=== PATIENT | male | born 1945 | race American Indian/Alaskan Native ===

== ENCOUNTER 2017-06-20 10:31 | Day surgery (SDC) | payer MEDICARE ==
--- NOTE | 2017-06-20 11:53 | Anesthesia Day of Surgery ---
Anesthesia Day of Surgery - Day of Surgery Patient Examined: Yes Patient H&P Reviewed: Yes Patient is NPO: Yes Beta Blockers: Yes
--- NOTE | 2017-06-20 11:53 | Anesthesia Consultation ---
Anesthesia Consult and Med Hx Date of service: 06/20/17 - Airway Anesthetic Teeth Evaluation: Poor ROM Head & Neck: Adequate Mental/Hyoid Distance: Adequate Mallampati Class: Class II Intubation Access Assessment: Probably Good - Pulmonary Exam CTA: Yes - Cardiac Exam Cardiac Exam: RRR - Pre-Operative Health Status ASA Pre-Surgery Classification: ASA4 Proposed Anesthetic Plan: General - Pulmonary Hx Smoking: Yes (STOPPED X 5 YRS- OCC SMOKER) Hx Asthma: Yes ( CHILD) COPD: Yes (NO MEDS) Hx Sleep Apnea: No (BESSIE PRE SCREEN HIGH RISK) - Cardiovascular System Hx Hypertension: Yes (X 50 YRS) Hx Coronary Artery Disease: Yes - Central Nervous System Hx Psychiatric Problems: No - Hematic Hx Anemia: Yes - Other Systems Hx Substance Use: Yes (HX DRUG ABUSE (COCAINE) quit 4 yrs ago)
[2017-06-20] MEDS ORDERED: PERCOCET 5/325 PO PRN (11:54)
[2017-06-20] MEDS ORDERED: MORPHINE IV PRN (11:54)
[2017-06-20] MEDS ORDERED: ANCEF/STERILE WATER 2 GM/20 ML IV NR (12:00)
[2017-06-20] MEDS ORDERED: NACL 0.9% 1000 ML 1,000 ML IV SCH (12:00)
[2017-06-20 12:03] LABS: INR 0.95 (0.87-1.13)
[2017-06-20 12:04] LABS: Partial Thromboplastin Time 28.9 Sec. (24.2-36.6)
[2017-06-20] MEDS ORDERED: SUBLIMAZE ONE (12:08)
[2017-06-20] MEDS ORDERED: XYLOCAINE MPF 2% ONE (12:08)
[2017-06-20] MEDS ORDERED: DIPRIVAN 10 MG/ML IV ONE (12:09)
[2017-06-20] MEDS ORDERED: GELFOAM TP ONE (12:11)
[2017-06-20] MEDS ORDERED: MARCAINE 0.25% INFILTRATI ONE ×2 (12:11→13:09)
[2017-06-20] MEDS ORDERED: HEPARIN 10,000 UNITS/10 ML ONE (12:11)
[2017-06-20] MEDS ORDERED: XYLOCAINE 1% 20 mL ONE (12:11)
[2017-06-20] MEDS ORDERED: NACL 0.9% 250ML 250 ML ONE (12:11)
[2017-06-20 12:22] LABS: Albumin 3.3 g/dL (3.9-5); Albumin/Globulin Ratio 0.6 %; Alkaline Phosphatase 83 units/L (35-129); Blood Urea Nitrogen 15 mg/dL (9-20); Calcium 9.2 mg/dL (8.4-10.2); Carbon Dioxide 23 mmol/L (22-30); Chloride 102.1 mmol/L (98-107); Glucose 97 mg/dL (75-100); Sodium 136 mmol/L (137-145)
[2017-06-20] MEDS ORDERED: ROBINUL ONE (12:30)
[2017-06-20 12:36] LABS: Anion Gap 16 mmol/L
[2017-06-20 12:37] LABS: Alanine Aminotransferase 47 units/L (7-56); Potassium 4.9 mmol/L (3.6-5.0)
[2017-06-20] MEDS ORDERED: NACL 0.9% IR ONE (13:09)
[2017-06-20] MEDS ORDERED: ePHEDrine SULFATE ONE (13:10)
[2017-06-20] MEDS ORDERED: XYLOCAINE 1% 20 mL INFILTRATI ONE (13:10)
[2017-06-20] MEDS ORDERED: HEPARIN 10,000 UNITS/10 ML 1,000 UNIT in NACL 0.9% 250ML 250 ML IR ONE (13:11)
[2017-06-20] MEDS ORDERED: ZOFRAN ONE (13:41)
[2017-06-20 14:59] VITALS: BP 146/74
--- NOTE | 2017-06-20 15:52 | Fluoroscopy Report ---
Operative chest: Port placement. The right chest and mediastinum are included on the images. There is a port introduced into the subclavian vein. Its tip appears to overlie the right atrium. No pneumothorax or other finding.
--- NOTE | 2017-06-20 23:08 | Discharge Summary ---
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 HOSPITAL COURSE: This man had the above and he is being handled by Dr. REYES___ who asked me to see him for consultation of insertion of subcutaneous port. This was done under general anesthesia. We had good backflow of venous blood via the port percutaneously. The patient was discharged home after being fully awake from the recovery room. To see early next week as per his advice and to call me if has any problem otherwise. He may take a shower after removing the bandage in about 3-4 days. DIET: Ad itzel. JOB# [id number] ERASMO/RAVINDER TUCKER
--- NOTE | 2017-06-20 23:12 | Operative Report ---
PREOPERATIVE DIAGNOSIS: Lung cancer with metastasis to the liver. POSTOPERATIVE DIAGNOSIS: Lung cancer with metastasis to the liver. PROCEDURE: Insertion of subcutaneous port under fluoroscopy. ANESTHESIA: General. BLOOD LOSS: Minimal. DESCRIPTION OF PROCEDURE: With the patient in supine position, cleansed, prepped and draped in usual fashion. I inserted a needle toward the direction of right subclavian vein where we had good backflow of venous blood. At that point, the guidewire was inserted with the use of the fluoroscopy. It went in nicely. Then, an incision was performed just at the base where a pocket was created to accommodate the system. The system was then assembled together in usual fashion and then tacking it to the pectoralis fascia with use of 3-0 Vicryl and then with the use of the C-arm and the guidewire, I was able to introduce the dilator in usual fashion removing the guidewire, leaving the sheath in through which I was able to thread the tubing in the usual fashion to enter all the way in. Then, the sheath was pulled apart having good backflow of venous blood via the port. Then, the wound was closed in layers with 3-0 Vicryl for the subcutaneous tissue and 4-0 for the skin and the bandage. The patient was then transferred to the recovery room in good condition. JOB# [id number] ERASMO/RAVINDER
== END 2017-06-20 15:23 | disposition home or self-care (01) ==
LOC: OR 10:31
PROVIDERS: ATTEND Surgery
DX: C34.90 Malignant neoplasm of unspecified part of unspecified bronchus or lung (principal); C78.7 Secondary malignant neoplasm of liver and intrahepatic bile duct; I10 Essential (primary) hypertension; I25.10 Atherosclerotic heart disease of native coronary artery without angina pectoris; E11.9 Type 2 diabetes mellitus without complications; F17.200 Nicotine dependence, unspecified, uncomplicated; M17.12 Unilateral primary osteoarthritis, left knee; I48.91 Unspecified atrial fibrillation; D64.9 Anemia, unspecified; J44.9 Chronic obstructive pulmonary disease, unspecified; F14.21 Cocaine dependence, in remission; Z95.5 Presence of coronary angioplasty implant and graft; Z98.890 Other specified postprocedural states; Z86.19 Personal history of other infectious and parasitic diseases; Z79.899 Other long term (current) drug therapy
CPT/HCPCS: 36415; 36561; 77001; 80053; 82962; 85610; 85730; C1788; J0690; J1644; J2405; J2704; J3010; J7030; J7050; A4649

== ENCOUNTER 2017-10-17 13:41 | Inpatient (IN) | payer MEDICARE ==
--- NOTE | 2017-10-17 15:33 | Emergency Department Report ---
Chief Complaint: Urogenital-Female Stated Complaint: GENERAL ILLNESS Time Seen by Provider: 10/17/17 15:33 - HPI History of Present Illness: Patient reports that he has a history of liver cancer and is now complaining of generalized weakness and feels ill. He said he is out of his pain medication and Axid for pain meds to be given. Patient said his abdominal pain is 10 out of 10. Is also on his history that he has liver and lung cancer . Patient said he usually takes morphine 15 mg tablets but he is out of it. Patient sees Dr. watkins is his oncologist. He said he gets chemotherapy every day and his last chemotherapy was today. Denies any vomiting or diarrhea. Denies any urinary burning frequency or urgency. - ROS Review of Systems: All systems are negative unless stated in HPI above - Exam Vital Signs: Vital Signs 10/17/17 14:13 Temperature 98.1 F Pulse Rate 97 H Respiratory 18 Rate Blood Pressure 131/69 O2 Sat by Pulse 98 Oximetry Physical Exam: Gen.: This is a 72-year-old male that is in no acute distress but he does look ill. Abdomen: Distended, tender to palpate in all quadrants more to right upper quadrant. Abdomen is distended. Bowel sounds audible. MSE screening note: Focused history and physical exam performed. Due to findings the following was ordered: ED Medical Decision Making - Medical Decision Making MDM: Patient screened by provider in triage area. Appropriate protocol initiated and patient to be seen in main ED by ED Disposition for MSE Condition: Stable Referrals: PRIMARY CARE, [Primary Care Provider] - 3-5 Days
[2017-10-17 16:15] LABS: Basophils % (Auto) 0.1 % (0.0-1.8); Hematocrit 39.3 % (35.5-45.6); Hemoglobin 12.1 gm/dl (11.8-15.2); Mean Corpuscular HGB Conc 31 % (32-34); Mean Corpuscular Volume 79 fl (84-94); Platelet Count 279 K/mm3 (140-440); Red Blood Count 4.94 M/mm3 (3.65-5.03); White Blood Count 10.9 K/mm3 (4.5-11.0)
[2017-10-17 16:19] LABS: Alanine Aminotransferase 24 units/L (7-56); Albumin 2.8 g/dL (3.9-5); Albumin/Globulin Ratio 0.4 %; Alkaline Phosphatase 75 units/L (35-129); Anion Gap 21 mmol/L; BUN/Creatinine Ratio 24; Blood Urea Nitrogen 19 mg/dL (9-20); Calcium 8.8 mg/dL (8.4-10.2); Carbon Dioxide 20 mmol/L (22-30); Chloride 96.6 mmol/L (98-107); Glucose 180 mg/dL (75-100); Lipase 26 units/L (13-60); Sodium 134 mmol/L (137-145); Total Protein 9.9 g/dL (6.3-8.2)
[2017-10-17 16:21] LABS: Mean Corpuscular Hemoglobin 25 pg (28-32); Red Cell Distribution Width 20.6 % (13.2-15.2)
[2017-10-17 16:25] LABS: INR 1.26 (0.87-1.13)
[2017-10-17 16:26] LABS: Partial Thromboplastin Time 49.1 Sec. (24.2-36.6)
[2017-10-17] MEDS ORDERED: PERCOCET 5/325 PO ONE (18:18)
[2017-10-17] MEDS ORDERED: MORPHINE IV ONE (21:20)
[2017-10-17] MEDS ORDERED: ZOFRAN IV ONE (21:20)
--- NOTE | 2017-10-17 23:15 | Cat Scan Report ---
FINAL REPORT PROCEDURE: CT ABDOMEN PELVIS W CON TECHNIQUE: Computerized axial tomography of the abdomen and pelvis was performed after the IV injection of iodinated nonionic contrast. HISTORY: ABD PAIN, H/O LIVER CANCER,ASCITES COMPARISON: No prior studies are available for comparison. FINDINGS: Mild hypoventilatory changes are seen at the lung bases. Spleen is top normal limits in size. There appears to be a heterogeneous mass in the left hepatic lobe. It is highly suspicious for primary liver cancer. It is difficult to measure but measures approximately 7.5 x 6.0 cm. It has associated biliary ductal dilation. There is partially obstructive thrombosis of the portal vein. Intrahepatic biliary ductal dilation is seen, also. Moderate ascites is seen in the right upper quadrant the abdomen. Cholelithiasis is seen without suggestion of cholecystitis. No extrahepatic biliary ductal dilation is seen. Pancreas is partially fatty replaced. Mildly enlarged retroperitoneal and periportal lymph nodes are seen, measuring up to 2.2 x 1.1 cm. Adrenal glands and abdominal aorta are normal in size. 3.1 cm cyst is seen in the superior pole of the left kidney and there is a 1.5 cm cyst in the lower pole of the right kidney. Bladder appears normal. Small left inguinal hernia is seen containing fat. No free pelvic fluid is seen. Colon is mostly decompressed with questionable diffuse wall thickening, as can be seen with colitis. Increased fluid and air are seen in the ilium and there may be wall thickening in the jejunum. Findings could be due to jejunitis or enteritis. Changes of gastritis are not excluded in the region of the antrum. IMPRESSION: Liver malignancy is suspected with associated partially occlusive portal vein thrombosis. Possible changes of jejunitis or enteritis are seen. There may be changes of gastritis in the antrum of the stomach. Colon is diffusely nondistended with questionable wall thickening. Consideration should be given to colitis, also. Cholelithiasis is seen without suggestion of cholecystitis.
--- NOTE | 2017-10-18 00:04 | Emergency Department Report ---
ED Abdominal Pain HPI - General Chief Complaint: Urogenital-Female Stated Complaint: GENERAL ILLNESS Time Seen by Provider: 10/17/17 15:33 Source: patient, EMS Mode of arrival: Wheelchair Limitations: Physical Limitation - History of Present Illness MD Complaint: abdominal pain -: Sudden (YESTERDAY AND TODAY), days(s) (2) Location: diffuse Migration to: no migration Severity scale (0 -10): 8 Quality: cramping, aching Consistency: intermittent Improves With: nothing Worsens With: nothing Context: other (LIVER CANCER) Associated Symptoms: denies other symptoms Treatments Prior to Arrival: prescription analgesics - Related Data Home Medications Medication Instructions Recorded Confirmed Last Taken Lisinopril/Hydrochlorothiazide 1 tab PO QDAY 07/12/16 06/17/17 06/20/17 07:30 [Zestoretic 20-25 mg] Loratadine 10 mg PO BID 07/12/16 06/20/17 06/19/17 Metoprolol [Lopressor TAB] 50 mg PO BID 07/12/16 06/17/17 06/20/17 07:30 Nitroglycerin [Nitrostat] 0.4 mg SL Q5M PRN 07/12/16 06/20/17 1 Day Ago ~07/11/16 Ondansetron [Zofran TAB] 8 mg PO Q8HR PRN 07/12/16 06/17/17 06/20/17 07:30 Morphine [Morphine TAB] 15 mg PO Q4HR 06/20/17 06/20/17 06/20/17 07:30 Previous Rx's Medication Instructions Recorded Last Taken Type Omeprazole 20 mg PO DAILY #30 capsule. 07/19/16 06/20/17 07:30 Rx Allergies Allergy/AdvReac Type Severity Reaction Status Date / Time No Known Allergies Allergy Verified 07/12/16 15:52 ED Review of Systems ROS: Stated complaint: GENERAL ILLNESS Other details as noted in HPI Constitutional: denies: chills, fever Eyes: denies: eye pain, eye discharge, vision change ENT: denies: ear pain, throat pain Respiratory: denies: cough, shortness of breath, wheezing Cardiovascular: denies: chest pain, palpitations Endocrine: no symptoms reported Gastrointestinal: denies: abdominal pain, nausea, diarrhea Genitourinary: other (URINARY RETENTION). denies: urgency, dysuria Musculoskeletal: denies: back pain, joint swelling, arthralgia Skin: denies: rash, lesions Neurological: denies: headache, weakness, paresthesias Psychiatric: denies: anxiety, depression Hematological/Lymphatic: denies: easy bleeding, easy bruising ED Past Medical Hx - Past Medical History Previous Medical History?: Yes Hx Hypertension: Yes (X 50 YRS) Hx Diabetes: Yes (NO MEDS) Hx GERD: Yes Hx of Cancer: Yes (liver, lung) Hx Arthritis: Yes Hx Asthma: Yes ( CHILD) Hx COPD: Yes (NO MEDS) Hx Tuberculosis: Yes (POSITIVE TEST 30YRS AGO,NO TX,) Hx HIV: No Additional medical history: CAD - Surgical History Past Surgical History?: Yes Hx Coronary Stent: Yes (X 3) Hx Appendectomy: Yes - Social History Smoking Status: Former Smoker Substance Use Type: Prescribed - Medications Home Medications: Home Medications Medication Instructions Recorded Confirmed Last Taken Type Lisinopril/Hydrochlorothiazide 1 tab PO QDAY 07/12/16 06/17/17 06/20/17 07:30 History [Zestoretic 20-25 mg] Loratadine 10 mg PO BID 07/12/16 06/20/17 06/19/17 History Metoprolol [Lopressor TAB] 50 mg PO BID 07/12/16 06/17/17 06/20/17 07:30 History Nitroglycerin [Nitrostat] 0.4 mg SL Q5M PRN 07/12/16 06/20/17 1 Day Ago History ~07/11/16 Ondansetron [Zofran TAB] 8 mg PO Q8HR PRN 07/12/16 06/17/17 06/20/17 07:30 History Omeprazole 20 mg PO DAILY #30 capsule. 07/19/16 06/20/17 06/20/17 07:30 Rx Morphine [Morphine TAB] 15 mg PO Q4HR 06/20/17 06/20/17 06/20/17 07:30 History ED Physical Exam - General Limitations: Language Barrier (PT'S LITHUANIAN IS DIFFICULT TO UNDERSTAND), Physical Limitation General appearance: alert, in no apparent distress - Head Head exam: Present: atraumatic, normocephalic - Eye Eye exam: Present: normal appearance, EOMI, scleral icterus - ENT ENT exam: Present: mucous membranes moist - Neck Neck exam: Present: normal inspection, full ROM - Respiratory Respiratory exam: Present: normal lung sounds bilaterally. Absent: respiratory distress - Cardiovascular Cardiovascular Exam: Present: regular rate, normal rhythm. Absent: systolic murmur, diastolic murmur, rubs, gallop - GI/Abdominal GI/Abdominal exam: Present: soft, tenderness, guarding, normal bowel sounds. Absent: rebound, rigid - Rectal Rectal exam: Present: deferred - Extremities Exam Extremities exam: Present: normal inspection, full ROM - Back Exam Back exam: Present: normal inspection, full ROM - Neurological Exam Neurological exam: Present: alert, oriented X3 - Psychiatric Psychiatric exam: Present: normal affect, normal mood - Skin Skin exam: Present: warm, dry, intact, normal color. Absent: rash ED Course Vital Signs 10/17/17 10/17/17 10/17/17 14:13 18:20 19:24 Temperature 98.1 F 98.1 F Pulse Rate 97 H 108 H Respiratory 18 18 18 Rate Blood Pressure 131/69 118/88 Blood Pressure [Left] O2 Sat by Pulse 98 99 Oximetry 10/17/17 10/17/17 20:31 21:54 Temperature 98.1 F Pulse Rate 84 Respiratory 16 16 Rate Blood Pressure Blood Pressure 141/86 [Left] O2 Sat by Pulse 97 Oximetry ED Medical Decision Making - Lab Data Result diagrams: 10/17/17 15:42 10/17/17 15:48 - Radiology Data Radiology results: report reviewed (CT ABD/PELVIS WITH CONTRAST:LIVER MALIGNANCY WITH PARTIAL OCCLUSIVE PORTAL VEIN THROMBOSIS,, POSSIBLE CHNAGES OF JEJUNITIS OR ENTERITIS,GASTRITIS IN ANTRUM OF STOMACH,POSSIBLE COLITIS, CHOLELITHIASIS WITHOUT CHOLECYSTITIS) Critical care attestation.: If time is entered above; I have spent that time in minutes in the direct care of this critically ill patient, excluding procedure time. 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 Abdominal pain Qualifiers: Abdominal location: unspecified location Qualified Code(s): R10.9 - Unspecified abdominal pain Lung cancer Qualifiers: Laterality: unspecified laterality Lung location: unspecified part of lung Qualified Code(s): C34.90 - Malignant neoplasm of unspecified part of unspecified bronchus or lung Disposition: OP ADMIT IP TO THIS HOSP Is pt being admited?: Yes Does the pt Need Aspirin: No Condition: Stable Referrals: PRIMARY CARE, [Primary Care Provider] - 3-5 Days Time of Disposition: 00:17 (CASE REVIEWED WITH DR BORRERO AND SHE WISHED PT TO HAVE FULL LOVENOX DOSE SUBQ AND WILL ADMIT HIM TO HER SERVICE)
[2017-10-18] MEDS ORDERED: MORPHINE IV ONE (01:37)
[2017-10-18] MEDS ORDERED: MORPHINE ONE (01:38)
[2017-10-18 02:44] LABS: Bilirubin,Urine NEG (Negative); Blood,Urine NEG (Negative); Ketones,Urine NEG (Negative); Leukocyte Esterase,Urine NEG (Negative); Mucus,Urine 2+ /HPF; Nitrite,Urine NEG (Negative); Protein,Urine <15 mg/dL mg/dL (Negative)
[2017-10-18] MEDS ORDERED: NITROSTAT SL PRN (04:26)
[2017-10-18] MEDS ORDERED: DULCOLAX PR PRN (04:29)
[2017-10-18] MEDS ORDERED: MILK OF MAGNESIA PO PRN (04:29)
[2017-10-18] MEDS ORDERED: TYLENOL PO PRN (04:29)
--- NOTE | 2017-10-18 04:34 | History and Physical Report ---
History of Present Illness Date of admission: 10/17/17 23:55 Chief complaint: abdominal pain History of present illness: 72-year-old male with past medical history of atrial fibrillation, he used be on Coumadin, but was stopped by his PCP. His Oncologist is Dr REYES, and he is on regorafinib (oral chemo for his HCC). Also has a history of hepatocellular carcinoma. It is not clear why his anticoagulation was stopped. Patient himself does not quite remember. He did state that he did have periods of anemia and low platelet counts. He presented abdominal pain, pain is mostly in the right upper quadrant, as 7 out of 10, sharp, nonradiating. Exacerbated by movements. Past History Past Medical History: hypertension, other (hepatocellular carcinoma- inoperable has been on chemo, atrial fibrillation,) Past Surgical History: No surgical history Social history: smoking (previous smoker) Family history: hypertension Medications and Allergies Allergies Allergy/AdvReac Type Severity Reaction Status Date / Time No Known Allergies Allergy Verified 07/12/16 15:52 Home Medications Medication Instructions Recorded Confirmed Last Taken Type Lisinopril/Hydrochlorothiazide 1 tab PO QDAY 07/12/16 06/17/17 06/20/17 07:30 History [Zestoretic 20-25 mg] Loratadine 10 mg PO BID 07/12/16 06/20/17 06/19/17 History Metoprolol [Lopressor TAB] 50 mg PO BID 07/12/16 06/17/17 06/20/17 07:30 History Nitroglycerin [Nitrostat] 0.4 mg SL Q5M PRN 07/12/16 06/20/17 1 Day Ago History ~07/11/16 Ondansetron [Zofran TAB] 8 mg PO Q8HR PRN 07/12/16 06/17/17 06/20/17 07:30 History Omeprazole 20 mg PO DAILY #30 capsule. 07/19/16 06/20/17 06/20/17 07:30 Rx Morphine [Morphine TAB] 15 mg PO Q4HR 06/20/17 06/20/17 06/20/17 07:30 History Active Meds: Active Medications Acetaminophen (Tylenol) 650 mg PO Q4H PRN PRN Reason: Pain MILD(1-3)/Fever >100.5/BOSCH Bisacodyl (Dulcolax) 10 mg IN QDAY PRN PRN Reason: Constipation unrelieved by MOM Enoxaparin Sodium (Lovenox) 90 mg SUB-Q Q12HR [facility] Magnesium Hydroxide (Milk Of Magnesia) 30 ml PO Q4H PRN PRN Reason: Constipation Metoprolol Tartrate (Lopressor) 50 mg PO BID [facility] Morphine Sulfate (Morphine) 15 mg PO Q4H PRN PRN Reason: Pain , Severe (7-10) Morphine Sulfate (Morphine) 4 mg IV Q4H PRN PRN Reason: Pain , Severe (7-10) Nitroglycerin (Nitrostat) 0.4 mg SL Q5M PRN PRN Reason: Chest Pain Ondansetron HCl (Zofran) 4 mg IV Q8H PRN PRN Reason: N/V unrelieved by Reglan Pantoprazole Sodium (Protonix) 20 mg PO DAILY [facility] Review of Systems Constitutional: weight loss, fatigue Gastrointestinal: abdominal pain, no nausea, no vomiting, no diarrhea Exam - Constitutional Vitals: Temp Pulse Resp BP Pulse Ox 98.1 F 85 15 135/82 98 10/17/17 20:31 10/18/17 03:16 10/18/17 03:16 10/18/17 03:16 10/18/17 03:16 General appearance: Present: no acute distress, well-nourished - EENT Eyes: Present: PERRL ENT: hearing intact, clear oral mucosa - Neck Neck: Present: supple, normal ROM - Respiratory Respiratory effort: normal Respiratory: bilateral: CTA - Cardiovascular Heart Sounds: Present: S1 & S2. Absent: rub, click - Extremities Extremities: pulses symmetrical, No edema Peripheral Pulses: within normal limits - Abdominal General gastrointestinal: Present: soft, non-tender, distended, normal bowel sounds, hepatomegaly Male genitourinary: Present: normal - Integumentary Integumentary: Present: clear, warm, dry - Musculoskeletal Musculoskeletal: gait normal, strength equal bilaterally - Psychiatric Psychiatric: appropriate mood/affect, intact judgment & insight - Neurologic Neurologic: CNII-XII intact, moves all extremities Results - Labs CBC & Chem 7: 10/17/17 15:42 10/17/17 15:48 Labs: Laboratory Last Values WBC 10.9 K/mm3 (4.5-11.0) 10/17/17 15:42 RBC 4.94 M/mm3 (3.65-5.03) 10/17/17 15:42 Hgb 12.1 gm/dl (11.8-15.2) 10/17/17 15:42 Hct 39.3 % (35.5-45.6) 10/17/17 15:42 MCV 79 fl (84-94) L 10/17/17 15:42 MCH 25 pg (28-32) L 10/17/17 15:42 MCHC 31 % (32-34) L 10/17/17 15:42 RDW 20.6 % (13.2-15.2) H 10/17/17 15:42 Plt Count 279 K/mm3 (140-440) 10/17/17 15:42 Lymph % (Auto) 8.5 % (13.4-35.0) L 10/17/17 15:42 [place] % (Auto) 3.0 % (0.0-7.3) 10/17/17 15:42 Eos % (Auto) 0.0 % (0.0-4.3) 10/17/17 15:42 Baso % (Auto) 0.1 % (0.0-1.8) 10/17/17 15:42 Lymph # 0.9 K/mm3 (1.2-5.4) L 10/17/17 15:42 [place] # 0.3 K/mm3 (0.0-0.8) 10/17/17 15:42 Eos # 0.0 K/mm3 (0.0-0.4) 10/17/17 15:42 Baso # 0.0 K/mm3 (0.0-0.1) 10/17/17 15:42 Seg Neutrophils % 88.4 % (40.0-70.0) H 10/17/17 15:42 Seg Neutrophils # 9.6 K/mm3 (1.8-7.7) H 10/17/17 15:42 PT 16.4 Sec. (12.2-14.9) H 10/17/17 15:48 INR 1.26 (0.87-1.13) H 10/17/17 15:48 APTT 49.1 Sec. (24.2-36.6) H 10/17/17 15:48 Sodium 134 mmol/L (137-145) L 10/17/17 15:48 Potassium 4.0 mmol/L (3.6-5.0) 10/17/17 15:48 Chloride 96.6 mmol/L (98-107) L 10/17/17 15:48 Carbon Dioxide 20 mmol/L (22-30) L 10/17/17 15:48 Anion Gap 21 mmol/L 10/17/17 15:48 BUN 19 mg/dL (9-20) 10/17/17 15:48 Creatinine 0.8 mg/dL (0.8-1.5) 10/17/17 15:48 Estimated GFR > 60 ml/min 10/17/17 15:48 BUN/Creatinine Ratio 24 % 10/17/17 15:48 Glucose 180 mg/dL (75-100) H 10/17/17 15:48 Calcium 8.8 mg/dL (8.4-10.2) 10/17/17 15:48 Total Bilirubin 2.80 mg/dL (0.1-1.2) H 10/17/17 15:48 AST 38 units/L (5-40) 10/17/17 15:48 ALT 24 units/L (7-56) 10/17/17 15:48 Alkaline Phosphatase 75 units/L (35-129) 10/17/17 15:48 Total Protein 9.9 g/dL (6.3-8.2) H 10/17/17 15:48 Albumin 2.8 g/dL (3.9-5) L 10/17/17 15:48 Albumin/Globulin Ratio 0.4 % 10/17/17 15:48 Lipase 26 units/L (13-60) 10/17/17 15:48 Urine Color Mariah (Yellow) 10/17/17 23:03 Urine Turbidity Clear (Clear) 10/17/17 23:03 Urine pH 5.0 (5.0-7.0) 10/17/17 23:03 Ur Specific [place] 1.045 (1.003-1.030) H 10/17/17 23:03 Urine Protein <15 mg/dl mg/dL (Negative) 10/17/17 23:03 Urine Glucose (UA) Neg mg/dL (Negative) 10/17/17 23:03 Urine Ketones Neg mg/dL (Negative) 10/17/17 23:03 Urine Blood Neg (Negative) 10/17/17 23:03 Urine Nitrite Neg (Negative) 10/17/17 23:03 Urine Bilirubin Neg (Negative) 10/17/17 23:03 Urine Urobilinogen 4.0 mg/dL (<2.0) 10/17/17 23:03 Ur Leukocyte Esterase Neg (Negative) 10/17/17 23:03 Urine WBC (Auto) 3.0 /HPF (0.0-6.0) 10/17/17 23:03 Urine RBC (Auto) 3.0 /HPF (0.0-6.0) 10/17/17 23:03 U Epithel Cells (Auto) 1.0 /HPF (0-13.0) 10/17/17 23:03 Hyaline Casts 18 /LPF 10/17/17 23:03 Urine Mucus 2+ /HPF 10/17/17 23:03 - Imaging and Cardiology CT scan - abdomen: image reviewed (liver mass, portal vein thrombosis) Assessment and Plan Assessment and plan: 72M with pmh of liver ca with lung mets, afib who used to be on warfarin, but it was dc for unclear reasons, now pw abdominal pain and found to have portal vein thrombosis Hepatocellular ca -outpatient care upon dc Portal vein thrombosis -start him on lovenox full dose -hematology consult Afib with hypercoaguable state -continue rate control meds -lovenox for anticoagulation HTN resume home meds dvt ppx fully anticoagulated
[2017-10-18] MEDS: MORPHINE IV PRN (08:11)
[2017-10-18] MEDS: LOPRESSOR PO SCH ×2 (09:43→22:43)
[2017-10-18] MEDS: LOVENOX SUB-Q SCH ×2 (09:45→22:43)
[2017-10-19] MEDS: MORPHINE IV PRN ×3 (06:56→18:50)
--- NOTE | 2017-10-19 08:46 | Consultation ---
History of Present Illness - Reason for Consult Consult date: 10/19/17 Portal vein thrombosis/HCC Requesting physician: AMILCAR GARRIDO - History of Present Illness Thank you for this consult, patient seen/examined. record reviewed, case discussed, and will be d/w DR ELIZABETH. He is known to have hx of HCC, and on active tx with regorafinib oral.He presented with abdominal discomfort, CT showed retoperitoneal LNs, and large liver lesion.He was already on anticoagulation for A fib, which was stopped for ?reason.His coags at this time are off slightly.Will ask DR Elizabeth to see him later today. Past History Past Medical History: atrial fib, hypertension, other (hepatocellular carcinoma - inoperable has been on chemo, atrial fibrillation,) Past Surgical History: No surgical history Social history: smoking (previous smoker) Family history: hypertension Medications and Allergies Allergies Allergy/AdvReac Type Severity Reaction Status Date / Time No Known Allergies Allergy Verified 07/12/16 15:52 Home Medications Medication Instructions Recorded Confirmed Last Taken Type Nitroglycerin [Nitrostat] 0.4 mg SL Q5M PRN 07/12/16 10/18/17 1 Day Ago History ~07/11/16 Ondansetron [Zofran TAB] 8 mg PO Q8HR PRN 07/12/16 10/18/17 06/20/17 07:30 History Omeprazole 20 mg PO DAILY #30 capsule. 07/19/16 10/18/17 06/20/17 07:30 Rx Aspirin [Adult Low Dose Aspirin EC] 81 mg PO QDAY 10/18/17 10/18/17 Unknown History Carvedilol [Coreg] 12.5 mg PO BID 10/18/17 10/18/17 Unknown History Furosemide [Lasix] 20 mg PO QDAY 10/18/17 10/18/17 Unknown History Meclizine [Antivert] 25 mg PO BID 10/18/17 10/18/17 Unknown History Morphine Sulfate [Morphine Sulfate 15 mg PO Q4-6H PRN 10/18/17 10/18/17 Unknown History IR] Regorafenib [Stivarga] 80 mg PO QAM 10/18/17 10/18/17 Unknown History Spironolactone [Aldactone] 50 mg PO BID 10/18/17 10/18/17 Unknown History amLODIPine [Norvasc] 10 mg PO DAILY 10/18/17 10/18/17 Unknown History Active Meds: Active Medications Acetaminophen (Tylenol) 650 mg PO Q4H PRN PRN Reason: Pain MILD(1-3)/Fever >100.5/BOSCH Bisacodyl (Dulcolax) 10 mg DC QDAY PRN PRN Reason: Constipation unrelieved by MOM Enoxaparin Sodium (Lovenox) 90 mg SUB-Q Q12HR [facility] Last Admin: 10/18/17 22:43 Dose: 90 mg Magnesium Hydroxide (Milk Of Magnesia) 30 ml PO Q4H PRN PRN Reason: Constipation Metoprolol Tartrate (Lopressor) 50 mg PO BID [facility] Last Admin: 10/18/17 22:43 Dose: 50 mg Morphine Sulfate (Morphine) 15 mg PO Q4H PRN PRN Reason: Pain , Severe (7-10) Morphine Sulfate (Morphine) 4 mg IV Q4H PRN PRN Reason: Pain , Severe (7-10) Last Admin: 10/19/17 06:56 Dose: 4 mg Nitroglycerin (Nitrostat) 0.4 mg SL Q5M PRN PRN Reason: Chest Pain Ondansetron HCl (Zofran) 4 mg IV Q8H PRN PRN Reason: N/V unrelieved by Reglan Pantoprazole Sodium (Protonix) 20 mg PO DAILY [facility] Exam - Constitutional Vitals: Temp Pulse Resp BP Pulse Ox 97.8 F 59 L 20 120/70 100 10/19/17 07:24 10/19/17 07:24 10/19/17 08:05 10/19/17 07:24 10/19/17 07:24 General appearance: Present: mild distress, well-nourished - EENT Eyes: Present: PERRL ENT: hearing intact, clear oral mucosa - Neck Neck: Present: supple, normal ROM - Respiratory Respiratory effort: normal Respiratory: bilateral: CTA - Cardiovascular Heart Sounds: Present: S1 & S2. Absent: rub, click - Extremities Extremities: pulses symmetrical, No edema Peripheral Pulses: within normal limits - Abdominal General gastrointestinal: Present: soft, non-tender, non-distended, normal bowel sounds Male genitourinary: Present: deferred - Rectal Rectal Exam: deferred - Integumentary Integumentary: Present: clear, warm, dry - Musculoskeletal Musculoskeletal: gait normal, strength equal bilaterally - Psychiatric Psychiatric: appropriate mood/affect, intact judgment & insight - Neurologic Neurologic: CNII-XII intact, moves all extremities Results - Labs CBC & Chem 7: 10/17/17 15:42 10/17/17 15:48 Assessment and Plan - Patient Problems (1) Abdominal pain Current Visit: Yes Status: Acute Qualifiers: Abdominal location: unspecified location Qualified Code(s): R10.9 - Unspecified abdominal pain Plan to address problem: Pain control (2) Portal vein thrombosis secondary to HCC invasion Current Visit: Yes Status: Acute Plan to address problem: Will d/w Dr ELIZABETH regarding anticoagulation. (3) Atrial fibrillation Current Visit: No Status: Acute Plan to address problem: same as above (4) Hepatocellular carcinoma Current Visit: No Status: Acute Plan to address problem: suppose to already be on tx. by DR ELIZABETH.
[2017-10-19] MEDS: PROTONIX PO SCH (10:31)
[2017-10-19] MEDS: LOVENOX SUB-Q SCH ×2 (10:31→23:55)
[2017-10-19] MEDS: LOPRESSOR PO SCH ×2 (10:32→23:56)
--- NOTE | 2017-10-19 10:58 | Query- Nutrition ---
Nery Nathan___Neftaliuigbjonah Date:__10/19/2017 Treasury Director/CDS:___Marisel Phone#:___[phone] Exercise your independent professional judgment when responding to query. Questions asked do not imply a particular answer is desired or expected. We greatly appreciate your clarification on this issue. Clinical Documentation States: 72 Year old male was admitted on 10/17/2017 for abdominal pain. Clinical Findings Show: BMI: 28.4 Albumin: 2.8 Please select the most appropriate option 3 [] Mild Malnutrition [x] Mild - Moderate Malnutrition [] Moderate - Severe Malnutrition [] Severe Malnutrition Serum Albumin 2.8 to 3.4 g/dl or Pre-albumin 5 to 17 mg/dl1,2 Inadequate nutritional intake1,2,3,4 NPO > 5 days Weight loss: 5% in 1 month or 7.5% in 3 months or 10% in 6 months1, 3,4 BMI 16 to 18.4 or Weight <90% of ideal body weight1,2,3,4 Serum Albumin < 2.8 g/ dl1,2 Lymphocytes < 1500/ L2 Inadequate nutritional intake3, high stress e.g. major trauma, sepsis,pancreatitis, martin etc. Decubitus ulcers1,2, , skin breakdown2, easy hair pluckability2 Weight <80% standard for height2 Triceps skin fold <3 mm2 Mid-arm muscle circumference <15 cm2 Creatinine-height index <60% standard2 [ ] Cachexia [ ] Emaciated w/Malnutrition [ ] Other: [ ] Unable to determine [ ] Comment/Explanation: Present on Admission: [ x] Yes (Y) [ ] Clinically undeterminable (W) [ ] No (N) Please also document response in your Progress Notes and/or Discharge Summary and indicate if the condition was present on admission. MTDD
--- NOTE | 2017-10-19 15:38 | Progress Note ---
Assessment and Plan Assessment and Plan Assessment and plan: 72M with pmh of liver ca with lung mets, afib who used to be on warfarin, but it was dc for unclear reasons, now pw abdominal pain and found to have portal vein thrombosis Hepatocellular ca -outpatient care upon dc Portal vein thrombosis -start him on lovenox full dose -hematology consult Afib with hypercoaguable state -continue rate control meds -lovenox for anticoagulation HTN resume home meds dvt ppx fully anticoagulated Subjective Date of service: 10/19/17 Principal diagnosis: DVT Interval history: Doing well Objective - Constitutional Vitals: Vital Signs - 12hr 10/19/17 10/19/17 10/19/17 07:24 07:26 08:04 Temperature 97.8 F Pulse Rate 59 L Respiratory 18 20 Rate Respiratory 20 Rate [Chest] Blood Pressure 120/70 O2 Sat by Pulse 100 Oximetry 10/19/17 10/19/17 10/19/17 08:05 10:32 11:02 Temperature Pulse Rate 68 Respiratory 20 16 16 Rate Respiratory Rate [Chest] Blood Pressure 129/73 O2 Sat by Pulse Oximetry 10/19/17 10/19/17 15:19 15:21 Temperature 98 F Pulse Rate 66 Respiratory 16 Rate Respiratory Rate [Chest] Blood Pressure 116/65 O2 Sat by Pulse 99 Oximetry General appearance: Present: no acute distress, well-nourished - EENT Eyes: PERRL, EOM intact ENT: hearing intact, clear oral mucosa Ears: bilateral: normal - Neck Neck: supple, normal ROM - Respiratory Respiratory effort: normal Respiratory: bilateral: CTA - Breasts Breasts: normal - Cardiovascular Rhythm: regular Heart Sounds: Present: S1 & S2. Absent: gallop, rub Extremities: pulses intact, No edema, normal color, Full ROM - Gastrointestinal General gastrointestinal: Present: soft, non-tender, non-distended, normal bowel sounds - Genitourinary Male genitourinary: normal - Integumentary Integumentary: clear, warm, dry - Musculoskeletal Musculoskeletal: 1, strength equal bilaterally - Neurologic Neurologic: moves all extremities - Psychiatric Psychiatric: memory intact, appropriate mood/affect, intact judgment & insight - Labs CBC & Chem 7: 10/17/17 15:42 10/17/17 15:48
[2017-10-20] MEDS: MORPHINE IV PRN ×3 (03:55→19:56)
[2017-10-20] MEDS: ZOFRAN IV PRN (04:03)
[2017-10-20] MEDS: PROTONIX PO SCH ×2 (10:00→10:37)
[2017-10-20] MEDS: LOPRESSOR PO SCH ×2 (10:37→22:05)
[2017-10-20] MEDS: LOVENOX SUB-Q SCH ×2 (10:38→22:05)
--- NOTE | 2017-10-20 16:03 | Progress Note ---
Assessment and Plan Assessment and plan: --Portal vein thrombosis; on full dose anticoagulation with Lovenox, Hematology following --History of A. fib; rate controlled, Continue beta blockers, not on anticoagulation at home, continue Lovenox --History of hepatocellular carcinoma; follows with oncologist , Check with oncology recommendations --Hypertension; well controlled, continue current antihypertensives and when necessary medications --DVT prophylaxis; full dose Lovenox --Full code Plan of care discussed with patient and his nurse Closely monitor the patient and adjust management as needed DC planning, possible discharge in 1-2 days if stable History Interval history: Seen and examined medical records reviewed No overnight events reported by the nursing staff Patient feels better on full dose anticoagulation for portal vein thrombosis Hematology oncology is following He denies nausea vomiting, denies chest pain shortness of breath Hospitalist Physical - Constitutional Vitals: Temp Pulse Resp BP Pulse Ox 98.7 F 68 20 106/50 99 10/20/17 08:10 10/20/17 08:10 10/20/17 08:10 10/20/17 08:10 10/20/17 08:10 General appearance: Present: no acute distress, well-nourished - EENT Eyes: Present: PERRL, EOM intact - Neck Neck: Present: supple, normal ROM - Respiratory Respiratory effort: normal Respiratory: bilateral: diminished, negative: rales, rhonchi, wheezing - Cardiovascular Rhythm: regular Heart Sounds: Present: S1 & S2 - Extremities Extremities: no ischemia, No edema Peripheral Pulses: within normal limits - Abdominal General gastrointestinal: soft, non-tender, non-distended, normal bowel sounds - Integumentary Integumentary: Present: clear, warm - Psychiatric Psychiatric: appropriate mood/affect, cooperative - Neurologic Neurologic: CNII-XII intact, moves all extremities Results - Labs CBC & Chem 7: 10/17/17 15:42 10/17/17 15:48 Labs: Laboratory Last Values WBC 10.9 K/mm3 (4.5-11.0) 10/17/17 15:42 RBC 4.94 M/mm3 (3.65-5.03) 10/17/17 15:42 Hgb 12.1 gm/dl (11.8-15.2) 10/17/17 15:42 Hct 39.3 % (35.5-45.6) 10/17/17 15:42 MCV 79 fl (84-94) L 10/17/17 15:42 MCH 25 pg (28-32) L 10/17/17 15:42 MCHC 31 % (32-34) L 10/17/17 15:42 RDW 20.6 % (13.2-15.2) H 10/17/17 15:42 Plt Count 279 K/mm3 (140-440) 10/17/17 15:42 Lymph % (Auto) 8.5 % (13.4-35.0) L 10/17/17 15:42 [place] % (Auto) 3.0 % (0.0-7.3) 10/17/17 15:42 Eos % (Auto) 0.0 % (0.0-4.3) 10/17/17 15:42 Baso % (Auto) 0.1 % (0.0-1.8) 10/17/17 15:42 Lymph # 0.9 K/mm3 (1.2-5.4) L 10/17/17 15:42 [place] # 0.3 K/mm3 (0.0-0.8) 10/17/17 15:42 Eos # 0.0 K/mm3 (0.0-0.4) 10/17/17 15:42 Baso # 0.0 K/mm3 (0.0-0.1) 10/17/17 15:42 Seg Neutrophils % 88.4 % (40.0-70.0) H 10/17/17 15:42 Seg Neutrophils # 9.6 K/mm3 (1.8-7.7) H 10/17/17 15:42 PT 16.4 Sec. (12.2-14.9) H 10/17/17 15:48 INR 1.26 (0.87-1.13) H 10/17/17 15:48 APTT 49.1 Sec. (24.2-36.6) H 10/17/17 15:48 Sodium 134 mmol/L (137-145) L 10/17/17 15:48 Potassium 4.0 mmol/L (3.6-5.0) 10/17/17 15:48 Chloride 96.6 mmol/L (98-107) L 10/17/17 15:48 Carbon Dioxide 20 mmol/L (22-30) L 10/17/17 15:48 Anion Gap 21 mmol/L 10/17/17 15:48 BUN 19 mg/dL (9-20) 10/17/17 15:48 Creatinine 0.8 mg/dL (0.8-1.5) 10/17/17 15:48 Estimated GFR > 60 ml/min 10/17/17 15:48 BUN/Creatinine Ratio 24 % 10/17/17 15:48 Glucose 180 mg/dL (75-100) H 10/17/17 15:48 Calcium 8.8 mg/dL (8.4-10.2) 10/17/17 15:48 Total Bilirubin 2.80 mg/dL (0.1-1.2) H 10/17/17 15:48 AST 38 units/L (5-40) 10/17/17 15:48 ALT 24 units/L (7-56) 10/17/17 15:48 Alkaline Phosphatase 75 units/L (35-129) 10/17/17 15:48 Total Protein 9.9 g/dL (6.3-8.2) H 10/17/17 15:48 Albumin 2.8 g/dL (3.9-5) L 10/17/17 15:48 Albumin/Globulin Ratio 0.4 % 10/17/17 15:48 Lipase 26 units/L (13-60) 10/17/17 15:48 Urine Color [place]iah (Yellow) 10/17/17 23:03 Urine Turbidity Clear (Clear) 10/17/17 23:03 Urine pH 5.0 (5.0-7.0) 10/17/17 23:03 Ur Specific [place] 1.045 (1.003-1.030) H 10/17/17 23:03 Urine Protein <15 mg/dl mg/dL (Negative) 10/17/17 23:03 Urine Glucose (UA) Neg mg/dL (Negative) 10/17/17 23:03 Urine Ketones Neg mg/dL (Negative) 10/17/17 23:03 Urine Blood Neg (Negative) 10/17/17 23:03 Urine Nitrite Neg (Negative) 10/17/17 23:03 Urine Bilirubin Neg (Negative) 10/17/17 23:03 Urine Urobilinogen 4.0 mg/dL (<2.0) 10/17/17 23:03 Ur Leukocyte Esterase Neg (Negative) 10/17/17 23:03 Urine WBC (Auto) 3.0 /HPF (0.0-6.0) 10/17/17 23:03 Urine RBC (Auto) 3.0 /HPF (0.0-6.0) 10/17/17 23:03 U Epithel Cells (Auto) 1.0 /HPF (0-13.0) 10/17/17 23:03 Hyaline Casts 18 /LPF 10/17/17 23:03 Urine Mucus 2+ /HPF 10/17/17 23:03
[2017-10-20] MEDS: MORPHINE PO PRN (22:05)
[2017-10-21] MEDS: MORPHINE IV PRN ×4 (06:40→20:15)
[2017-10-21] MEDS: LOPRESSOR PO SCH ×2 (09:45→21:05)
[2017-10-21] MEDS: PROTONIX PO SCH (09:46)
[2017-10-21] MEDS: LOVENOX SUB-Q SCH ×2 (09:46→21:05)
--- NOTE | 2017-10-21 10:14 | Progress Note ---
Assessment and Plan Assessment and plan: 72-year-old -[place] male patient with significant past medical history of hepatocellular carcinoma, inoperable, on chemotherapy, follows with oncologist Dr. REYES, admitted with portal vein thrombosis, on full dose Lovenox Pending oncology evaluation --Portal vein thrombosis; continue anticoagulation with Lovenox, possible discharge on Coumadin Pending evaluation by title coordinator Dr. REYES --History of A. fib; rate controlled, Continue beta blockers, not on anticoagulation at home, continue Lovenox --History of hepatocellular carcinoma; inoperable, follows with oncologist , Check with oncology recommendations --Hypertension; well controlled, continue current antihypertensives and when necessary medications --DVT prophylaxis; full dose Lovenox --Full code Plan of care discussed with patient and his nurse DC planning, possible discharge in 1-2 days if stable History Interval history: Patient seen and examined Medical records reviewed Complaints of abdominal pain Denies nausea vomiting Hospitalist Physical - Constitutional Vitals: Temp Pulse Resp BP Pulse Ox 99.1 F 75 18 118/73 97 10/21/17 07:53 10/21/17 07:53 10/21/17 07:53 10/21/17 07:53 10/21/17 07:53 General appearance: Present: no acute distress, well-nourished - EENT Eyes: Present: PERRL, EOM intact - Neck Neck: Present: supple, normal ROM - Respiratory Respiratory effort: normal Respiratory: bilateral: diminished, negative: rales, rhonchi, wheezing - Cardiovascular Rhythm: regular Heart Sounds: Present: S1 & S2 - Extremities Extremities: no ischemia, No edema - Abdominal General gastrointestinal: soft, tender (left upper abdomen ,no guarding rigidity ), normal bowel sounds - Integumentary Integumentary: Present: clear, warm - Psychiatric Psychiatric: appropriate mood/affect, cooperative - Neurologic Neurologic: CNII-XII intact, moves all extremities Results - Labs CBC & Chem 7: 10/17/17 15:42 10/17/17 15:48 Labs: Laboratory Last Values WBC 10.9 K/mm3 (4.5-11.0) 10/17/17 15:42 RBC 4.94 M/mm3 (3.65-5.03) 10/17/17 15:42 Hgb 12.1 gm/dl (11.8-15.2) 10/17/17 15:42 Hct 39.3 % (35.5-45.6) 10/17/17 15:42 MCV 79 fl (84-94) L 10/17/17 15:42 MCH 25 pg (28-32) L 10/17/17 15:42 MCHC 31 % (32-34) L 10/17/17 15:42 RDW 20.6 % (13.2-15.2) H 10/17/17 15:42 Plt Count 279 K/mm3 (140-440) 10/17/17 15:42 Lymph % (Auto) 8.5 % (13.4-35.0) L 10/17/17 15:42 [place] % (Auto) 3.0 % (0.0-7.3) 10/17/17 15:42 Eos % (Auto) 0.0 % (0.0-4.3) 10/17/17 15:42 Baso % (Auto) 0.1 % (0.0-1.8) 10/17/17 15:42 Lymph # 0.9 K/mm3 (1.2-5.4) L 10/17/17 15:42 [place] # 0.3 K/mm3 (0.0-0.8) 10/17/17 15:42 Eos # 0.0 K/mm3 (0.0-0.4) 10/17/17 15:42 Baso # 0.0 K/mm3 (0.0-0.1) 10/17/17 15:42 Seg Neutrophils % 88.4 % (40.0-70.0) H 10/17/17 15:42 Seg Neutrophils # 9.6 K/mm3 (1.8-7.7) H 10/17/17 15:42 PT 16.4 Sec. (12.2-14.9) H 10/17/17 15:48 INR 1.26 (0.87-1.13) H 10/17/17 15:48 APTT 49.1 Sec. (24.2-36.6) H 10/17/17 15:48 Sodium 134 mmol/L (137-145) L 10/17/17 15:48 Potassium 4.0 mmol/L (3.6-5.0) 10/17/17 15:48 Chloride 96.6 mmol/L (98-107) L 10/17/17 15:48 Carbon Dioxide 20 mmol/L (22-30) L 10/17/17 15:48 Anion Gap 21 mmol/L 10/17/17 15:48 BUN 19 mg/dL (9-20) 10/17/17 15:48 Creatinine 0.8 mg/dL (0.8-1.5) 10/17/17 15:48 Estimated GFR > 60 ml/min 10/17/17 15:48 BUN/Creatinine Ratio 24 % 10/17/17 15:48 Glucose 180 mg/dL (75-100) H 10/17/17 15:48 Calcium 8.8 mg/dL (8.4-10.2) 10/17/17 15:48 Total Bilirubin 2.80 mg/dL (0.1-1.2) H 10/17/17 15:48 AST 38 units/L (5-40) 10/17/17 15:48 ALT 24 units/L (7-56) 10/17/17 15:48 Alkaline Phosphatase 75 units/L (35-129) 10/17/17 15:48 Total Protein 9.9 g/dL (6.3-8.2) H 10/17/17 15:48 Albumin 2.8 g/dL (3.9-5) L 10/17/17 15:48 Albumin/Globulin Ratio 0.4 % 10/17/17 15:48 Lipase 26 units/L (13-60) 10/17/17 15:48 Urine Color [place] (Yellow) 10/17/17 23:03 Urine Turbidity Clear (Clear) 10/17/17 23:03 Urine pH 5.0 (5.0-7.0) 10/17/17 23:03 Ur Specific [place] 1.045 (1.003-1.030) H 10/17/17 23:03 Urine Protein <15 mg/dl mg/dL (Negative) 10/17/17 23:03 Urine Glucose (UA) Neg mg/dL (Negative) 10/17/17 23:03 Urine Ketones Neg mg/dL (Negative) 10/17/17 23:03 Urine Blood Neg (Negative) 10/17/17 23:03 Urine Nitrite Neg (Negative) 10/17/17 23:03 Urine Bilirubin Neg (Negative) 10/17/17 23:03 Urine Urobilinogen 4.0 mg/dL (<2.0) 10/17/17 23:03 Ur Leukocyte Esterase Neg (Negative) 10/17/17 23:03 Urine WBC (Auto) 3.0 /HPF (0.0-6.0) 10/17/17 23:03 Urine RBC (Auto) 3.0 /HPF (0.0-6.0) 10/17/17 23:03 U Epithel Cells (Auto) 1.0 /HPF (0-13.0) 10/17/17 23:03 Hyaline Casts 18 /LPF 10/17/17 23:03 Urine Mucus 2+ /HPF 10/17/17 23:03
[2017-10-22] MEDS: MORPHINE IV PRN ×5 (01:41→20:21)
[2017-10-22 05:50] LABS: Anion Gap 13 mmol/L; BUN/Creatinine Ratio 30; Blood Urea Nitrogen 18 mg/dL (9-20); Calcium 8.4 mg/dL (8.4-10.2); Carbon Dioxide 26 mmol/L (22-30); Chloride 97.8 mmol/L (98-107); Glucose 151 mg/dL (75-100); Potassium 4.3 mmol/L (3.6-5.0); Sodium 132 mmol/L (137-145)
[2017-10-22 05:53] LABS: Basophils % (Auto) 0.2 % (0.0-1.8); Hematocrit 35.9 % (35.5-45.6); Hemoglobin 11.5 gm/dl (11.8-15.2); Mean Corpuscular HGB Conc 32 % (32-34); Mean Corpuscular Hemoglobin 25 pg (28-32); Mean Corpuscular Volume 79 fl (84-94); Platelet Count 226 K/mm3 (140-440); Red Blood Count 4.53 M/mm3 (3.65-5.03); Red Cell Distribution Width 20.2 % (13.2-15.2); White Blood Count 12.5 K/mm3 (4.5-11.0)
[2017-10-22] MEDS: LOVENOX SUB-Q SCH ×2 (09:28→21:06)
[2017-10-22] MEDS: PROTONIX PO SCH (09:28)
[2017-10-22] MEDS: LOPRESSOR PO SCH ×2 (09:32→21:25)
--- NOTE | 2017-10-22 12:58 | Progress Note ---
Assessment and Plan 2M with pmh of liver ca with lung mets, afib who used to be on warfarin, but it was dc for unclear reasons, now pw abdominal pain and found to have portal vein thrombosis Leukocytosis: worsenig:Blood cutrd estefany gamboa thus far Hepatocellular ca -Has increased adbominal pioutpatient care upon dc Portal vein thrombosis -start him on lovenox full dose -hematology imouit aoorefk Afib with hypercoaguable state -continue anticoagulation Subjective Date of service: 10/22/17 Principal diagnosis: DVT, hepatocellular carcinoma Interval history: C/o increased abdominal pain. Want an increase in his present narcotic. Has insomnia Objective - Constitutional Vitals: Vital Signs - 12hr 10/22/17 10/22/17 08:14 09:32 Temperature 99.0 F Pulse Rate 74 74 Respiratory 18 Rate Blood Pressure 127/69 127/69 O2 Sat by Pulse 96 Oximetry General appearance: Present: no acute distress, well-nourished - EENT Eyes: PERRL, EOM intact Ears: bilateral: bulging - Neck Neck: supple, normal ROM - Respiratory Respiratory effort: normal Respiratory: bilateral: CTA - Breasts Breasts: normal - Cardiovascular Rhythm: regular Heart Sounds: Present: S1 & S2. Absent: gallop, rub Extremities: pulses intact, No edema, normal color, Full ROM - Gastrointestinal General gastrointestinal: Present: soft, non-tender, non-distended, normal bowel sounds - Genitourinary Male genitourinary: normal - Integumentary Integumentary: clear, warm, dry - Musculoskeletal Musculoskeletal: 1, strength equal bilaterally - Neurologic Neurologic: moves all extremities - Psychiatric Psychiatric: memory intact, appropriate mood/affect, intact judgment & insight - Labs CBC & Chem 7: 10/22/17 04:54 10/22/17 04:54 Labs: Abnormal lab results 10/22/17 10/22/17 Range/Units 04:54 04:54 WBC 12.5 H (4.5-11.0) K/mm3 Hgb 11.5 L (11.8-15.2) gm/dl MCV 79 L (84-94) fl MCH 25 L (28-32) pg RDW 20.2 H (13.2-15.2) % [place] % (Auto) 12.8 H (0.0-7.3) % [place] # 1.6 H (0.0-0.8) K/mm3 Seg Neutrophils % 72.3 H (40.0-70.0) % Seg Neutrophils # 9.1 H (1.8-7.7) K/mm3 Sodium 132 L (137-145) mmol/L Chloride 97.8 L (98-107) mmol/L Creatinine 0.6 L (0.8-1.5) mg/dL Glucose 151 H (75-100) mg/dL
[2017-10-22] MEDS: ZOFRAN IV PRN (20:21)
[2017-10-22] MEDS: MORPHINE PO PRN (23:56)
[2017-10-23 05:40] LABS: Hematocrit 34.3 % (35.5-45.6); Hemoglobin 10.7 gm/dl (11.8-15.2); Mean Corpuscular HGB Conc 31 % (32-34); Mean Corpuscular Volume 79 fl (84-94); Platelet Count 225 K/mm3 (140-440); Red Blood Count 4.37 M/mm3 (3.65-5.03); White Blood Count 11.7 K/mm3 (4.5-11.0)
[2017-10-23 05:43] LABS: Mean Corpuscular Hemoglobin 25 pg (28-32); Red Cell Distribution Width 20.4 % (13.2-15.2)
[2017-10-23 06:02] LABS: Alanine Aminotransferase 21 units/L (7-56); Albumin 2.1 g/dL (3.9-5); Albumin/Globulin Ratio 0.3 %; Alkaline Phosphatase 58 units/L (35-129); Anion Gap 11 mmol/L; BUN/Creatinine Ratio 28; Blood Urea Nitrogen 22 mg/dL (9-20); Calcium 8.4 mg/dL (8.4-10.2); Carbon Dioxide 27 mmol/L (22-30); Chloride 96.9 mmol/L (98-107); Glucose 91 mg/dL (75-100); Potassium 4.2 mmol/L (3.6-5.0); Sodium 131 mmol/L (137-145); Total Protein 8.3 g/dL (6.3-8.2)
[2017-10-23 07:54] LABS: Anisocytosis 1+; Basophils % (Manual) 0 % (0.0-1.8); Blastocytes % (Manual) 0 %; Eosinophils % (Manual) 0 % (0.0-4.3); Hypochromasia 1+
[2017-10-23 08:01] LABS: Schistocytes Rare; Target Cells 1+
[2017-10-23 08:05] LABS: Diff Status Complete
--- NOTE | 2017-10-23 09:27 | Progress Note ---
Assessment and Plan Assessment and plan: --Portal vein thrombosis; continue anticoagulation with Lovenox, start low-dose Coumadin, closely monitor INR therapeutic with 2-3 Pending evaluation by social media job [employer] Dr. REYES --History of A. fib; rate controlled, Continue beta blockers, not on anticoagulation at home, continue Lovenox --History of hepatocellular carcinoma; inoperable, follows with oncologist , Check with oncology recommendations --Hypertension; well controlled, continue current antihypertensives and when necessary medications --DVT prophylaxis; full dose Lovenox --Full code status Plan of care discussed with the patient, answered his questions ,patient verbalized understanding History Interval history: Patient seen and examined in his room this morning medical records reviewed Complaints of abdominal pain, no nausea or vomiting Admitted with portal vein thrombosis on full dose anticoagulation Awaiting hematology oncologist evaluation Hospitalist Physical - Constitutional Vitals: Temp Pulse Resp BP Pulse Ox 98.7 F 68 16 114/61 97 10/23/17 07:49 10/23/17 07:49 10/23/17 07:49 10/23/17 07:49 10/23/17 07:49 General appearance: Present: no acute distress, well-nourished - EENT Eyes: Present: PERRL, EOM intact - Neck Neck: Present: supple, normal ROM - Respiratory Respiratory effort: normal Respiratory: bilateral: diminished, negative: rales, rhonchi, wheezing - Cardiovascular Rhythm: regular Heart Sounds: Present: S1 & S2 - Extremities Extremities: no ischemia, No edema - Abdominal General gastrointestinal: soft, tender (no guarding no rigidity), non-distended , normal bowel sounds - Integumentary Integumentary: Present: clear, warm - Psychiatric Psychiatric: appropriate mood/affect, cooperative - Neurologic Neurologic: CNII-XII intact, moves all extremities Results - Labs CBC & Chem 7: 10/23/17 04:46 10/23/17 04:46 Labs: Laboratory Last Values WBC 11.7 K/mm3 (4.5-11.0) H 10/23/17 04:46 RBC 4.37 M/mm3 (3.65-5.03) 10/23/17 04:46 Hgb 10.7 gm/dl (11.8-15.2) L 10/23/17 04:46 Hct 34.3 % (35.5-45.6) L 10/23/17 04:46 MCV 79 fl (84-94) L 10/23/17 04:46 MCH 25 pg (28-32) L 10/23/17 04:46 MCHC 31 % (32-34) L 10/23/17 04:46 RDW 20.4 % (13.2-15.2) H 10/23/17 04:46 Plt Count 225 K/mm3 (140-440) 10/23/17 04:46 Lymph % (Auto) 14.7 % (13.4-35.0) 10/22/17 04:54 Craven % (Auto) Stack Matcher 10/23/17 04:46 Eos % (Auto) 0.0 % (0.0-4.3) 10/22/17 04:54 Baso % (Auto) 0.2 % (0.0-1.8) 10/22/17 04:54 Lymph # 1.8 K/mm3 (1.2-5.4) 10/22/17 04:54 Craven # 1.6 K/mm3 (0.0-0.8) H 10/22/17 04:54 Eos # 0.0 K/mm3 (0.0-0.4) 10/22/17 04:54 Baso # 0.0 K/mm3 (0.0-0.1) 10/22/17 04:54 Add Manual Diff Complete 10/23/17 04:46 Total Counted 100 10/23/17 04:46 Seg Neutrophils % 72.3 % (40.0-70.0) H 10/22/17 04:54 Seg Neuts % (Manual) 76.0 % (40.0-70.0) H 10/23/17 04:46 Band Neutrophils % 1.0 % 10/23/17 04:46 Lymphocytes % (Manual) 15.0 % (13.4-35.0) 10/23/17 04:46 Reactive Lymphs % (Man) 0 % 10/23/17 04:46 Monocytes % (Manual) 8.0 % (0.0-7.3) H 10/23/17 04:46 Eosinophils % (Manual) 0 % (0.0-4.3) 10/23/17 04:46 Basophils % (Manual) 0 % (0.0-1.8) 10/23/17 04:46 Metamyelocytes % 0 % 10/23/17 04:46 Myelocytes % 0 % 10/23/17 04:46 Promyelocytes % 0 % 10/23/17 04:46 Blast Cells % 0 % 10/23/17 04:46 Nucleated RBC % Not Reportable 10/23/17 04:46 Seg Neutrophils # 9.1 K/mm3 (1.8-7.7) H 10/22/17 04:54 Seg Neutrophils # Man 8.9 K/mm3 (1.8-7.7) H 10/23/17 04:46 Band Neutrophils # 0.1 K/mm3 10/23/17 04:46 Lymphocytes # (Manual) 1.8 K/mm3 (1.2-5.4) 10/23/17 04:46 Abs React Lymphs (Man) 0.0 K/mm3 10/23/17 04:46 Monocytes # (Manual) 0.9 K/mm3 (0.0-0.8) H 10/23/17 04:46 Eosinophils # (Manual) 0.0 K/mm3 (0.0-0.4) 10/23/17 04:46 Basophils # (Manual) 0.0 K/mm3 (0.0-0.1) 10/23/17 04:46 Metamyelocytes # 0.0 K/mm3 10/23/17 04:46 Myelocytes # 0.0 K/mm3 10/23/17 04:46 Promyelocytes # 0.0 K/mm3 10/23/17 04:46 Blast Cells # 0.0 K/mm3 10/23/17 04:46 WBC Morphology Not Reportable 10/23/17 04:46 Hypersegmented Neuts Not Reportable 10/23/17 04:46 Hyposegmented Neuts Not Reportable 10/23/17 04:46 Hypogranular Neuts Not Reportable 10/23/17 04:46 Smudge Cells Not Reportable 10/23/17 04:46 Toxic Granulation Not Reportable 10/23/17 04:46 Toxic Vacuolation Not Reportable 10/23/17 04:46 Dohle Bodies Not Reportable 10/23/17 04:46 Pelger-Huet Anomaly Not Reportable 10/23/17 04:46 Lance Rods Not Reportable 10/23/17 04:46 Platelet Estimate Appears normal 10/23/17 04:46 Clumped Platelets Not Reportable 10/23/17 04:46 Plt Clumps, EDTA Not Reportable 10/23/17 04:46 Large Platelets Not Reportable 10/23/17 04:46 Giant Platelets Not Reportable 10/23/17 04:46 Platelet Satelliting Not Reportable 10/23/17 04:46 Plt Morphology Comment Not Reportable 10/23/17 04:46 RBC Morphology Not Reportable 10/23/17 04:46 Dimorphic RBCs Not Reportable 10/23/17 04:46 Polychromasia Not Reportable 10/23/17 04:46 Hypochromasia 1+ 10/23/17 04:46 Poikilocytosis Not Reportable 10/23/17 04:46 Anisocytosis 1+ 10/23/17 04:46 Microcytosis Not Reportable 10/23/17 04:46 Macrocytosis Not Reportable 10/23/17 04:46 Spherocytes Not Reportable 10/23/17 04:46 Pappenheimer Bodies Not Reportable 10/23/17 04:46 Sickle Cells Not Reportable 10/23/17 04:46 Target Cells 1+ 10/23/17 04:46 Tear Drop Cells Not Reportable 10/23/17 04:46 Ovalocytes Not Reportable 10/23/17 04:46 Helmet Cells Not Reportable 10/23/17 04:46 Concepcion-Honor Bodies Not Reportable 10/23/17 04:46 [place] Rings Not Reportable 10/23/17 04:46 Linden Cells Not Reportable 10/23/17 04:46 Bite Cells Not Reportable 10/23/17 04:46 Crenated Cell Not Reportable 10/23/17 04:46 Elliptocytes Not Reportable 10/23/17 04:46 Acanthocytes (Spur) Not Reportable 10/23/17 04:46 Rouleaux Not Reportable 10/23/17 04:46 Hemoglobin C Crystals Not Reportable 10/23/17 04:46 Schistocytes Rare 10/23/17 04:46 Malaria parasites Not Reportable 10/23/17 04:46 Elpidio Bodies Not Reportable 10/23/17 04:46 Hem Pathologist Commnt No 10/23/17 04:46 PT 16.4 Sec. (12.2-14.9) H 10/17/17 15:48 INR 1.26 (0.87-1.13) H 10/17/17 15:48 APTT 49.1 Sec. (24.2-36.6) H 10/17/17 15:48 Sodium 131 mmol/L (137-145) L 10/23/17 04:46 Potassium 4.2 mmol/L (3.6-5.0) 10/23/17 04:46 Chloride 96.9 mmol/L (98-107) L 10/23/17 04:46 Carbon Dioxide 27 mmol/L (22-30) 10/23/17 04:46 Anion Gap 11 mmol/L 10/23/17 04:46 BUN 22 mg/dL (9-20) H 10/23/17 04:46 Creatinine 0.8 mg/dL (0.8-1.5) 10/23/17 04:46 Estimated GFR > 60 ml/min 10/23/17 04:46 BUN/Creatinine Ratio 28 % 10/23/17 04:46 Glucose 91 mg/dL (75-100) 10/23/17 04:46 Hemoglobin A1c 5.5 % (4-6) 10/22/17 04:54 Calcium 8.4 mg/dL (8.4-10.2) 10/23/17 04:46 Total Bilirubin 2.20 mg/dL (0.1-1.2) H 10/23/17 04:46 AST 30 units/L (5-40) 10/23/17 04:46 ALT 21 units/L (7-56) 10/23/17 04:46 Alkaline Phosphatase 58 units/L (35-129) 10/23/17 04:46 Total Protein 8.3 g/dL (6.3-8.2) H 10/23/17 04:46 Albumin 2.1 g/dL (3.9-5) L 10/23/17 04:46 Albumin/Globulin Ratio 0.3 % 10/23/17 04:46 Lipase 26 units/L (13-60) 10/17/17 15:48 Urine Color Mariah (Yellow) 10/17/17 23:03 Urine Turbidity Clear (Clear) 10/17/17 23:03 Urine pH 5.0 (5.0-7.0) 10/17/17 23:03 Ur Specific [place] 1.045 (1.003-1.030) H 10/17/17 23:03 Urine Protein <15 mg/dl mg/dL (Negative) 10/17/17 23:03 Urine Glucose (UA) Neg mg/dL (Negative) 10/17/17 23:03 Urine Ketones Neg mg/dL (Negative) 10/17/17 23:03 Urine Blood Neg (Negative) 10/17/17 23:03 Urine Nitrite Neg (Negative) 10/17/17 23:03 Urine Bilirubin Neg (Negative) 10/17/17 23:03 Urine Urobilinogen 4.0 mg/dL (<2.0) 10/17/17 23:03 Ur Leukocyte Esterase Neg (Negative) 10/17/17 23:03 Urine WBC (Auto) 3.0 /HPF (0.0-6.0) 10/17/17 23:03 Urine RBC (Auto) 3.0 /HPF (0.0-6.0) 10/17/17 23:03 U Epithel Cells (Auto) 1.0 /HPF (0-13.0) 10/17/17 23:03 Hyaline Casts 18 /LPF 10/17/17 23:03 Urine Mucus 2+ /HPF 10/17/17 23:03
[2017-10-23] MEDS: LOPRESSOR PO SCH ×2 (09:32→22:20)
[2017-10-23] MEDS: LOVENOX SUB-Q SCH ×2 (09:32→22:16)
[2017-10-23] MEDS: PROTONIX PO SCH (09:33)
[2017-10-23] MEDS: MORPHINE IV PRN ×2 (11:42→22:12)
[2017-10-23 16:35] LABS: INR 1.16 (0.87-1.13)
[2017-10-23] MEDS ORDERED: COUMADIN PO SCH (17:00)
[2017-10-24 05:43] LABS: Hematocrit 30.9 % (35.5-45.6); Hemoglobin 10.1 gm/dl (11.8-15.2); Mean Corpuscular HGB Conc 33 % (32-34); Mean Corpuscular Volume 79 fl (84-94); Platelet Count 184 K/mm3 (140-440); Red Blood Count 3.93 M/mm3 (3.65-5.03); White Blood Count 7.5 K/mm3 (4.5-11.0)
[2017-10-24 05:46] LABS: Mean Corpuscular Hemoglobin 26 pg (28-32); Red Cell Distribution Width 20.2 % (13.2-15.2)
[2017-10-24] MEDS: MORPHINE IV PRN ×2 (05:48→10:58)
[2017-10-24 05:53] LABS: INR 1.17 (0.87-1.13)
[2017-10-24 06:32] LABS: Basophils % (Manual) 0 % (0.0-1.8); Blastocytes % (Manual) 0 %; Eosinophils % (Manual) 0 % (0.0-4.3)
[2017-10-24 06:33] LABS: Anisocytosis 1+; Diff Status Complete; Hypochromasia 1+; Platelet Estimate Consistent w Auto
[2017-10-24] MEDS: LOVENOX SUB-Q SCH (09:17)
[2017-10-24] MEDS: PROTONIX PO SCH (09:19)
[2017-10-24] MEDS: LOPRESSOR PO SCH (09:20)
--- NOTE | 2017-10-24 12:34 | Discharge Summary ---
Providers - Providers Date of Admission: 10/17/17 23:55 Date of discharge: 10/24/17 Attending physician: ERIC CHAPMAN 10/18/17 04:29 Consult to Physician [CONS] Routine Consulting Provider: BETTE EDMONDSON Reason For Exam: HCC and portal vein thrombosis Place consult to:: Notified:: yes Phone number called:: [phone] Was contact made?: Yes If yes, spoke with:: Time called:: 20:51 Comment:: Add to list Hospitalization Reason for admission: Abdominal pain Condition: Stable Pertinent studies: CT abdomen and pelvis with contrast; Liver malignancy suspected with associated partially occlusive portal vein thrombosis, possible changes of jejunitis and enteritis Hospital course: Very pleasant 72-year-old -[place] male patient with significant past medical history of hepatocellular carcinoma inoperable fall asleep oncologist [Dr. Gabe Nix]. was admitted through emergency room with abdominal pain Patient was initially evaluated and workup is consistent with portal vein thrombosis, seen by oncologist, started on full dose Lovenox, and patient's primary oncologist Was consulted.Patient was symptomatically managed, since his oncologist was unable to see the patient in the hospital stay, patient will be discharged on full dose Lovenox and Coumadin and follow with . in 1-2 days at his office She was advised to stop Lovenox and Coumadin if he notices any bleeding and contact M.D. or go to emergency room He was also advised to check frequent INRs were therapeutic goal between 2 and 3 Next INR check 10/26/2017atPMD or hematology'soffice Today patient is comfortable in bed, no new complaints, vitals stable, physical examination prior to discharge did not show any new changes disabilities services officer have evaluated the patient, set up home health. Discharge diagnosis; --Portal vein thrombosis; anticoagulation with Lovenox, Coumadin, target INR 2 -3 --History of A. fib; rate controlled, --History of hepatocellular carcinoma; inoperable, --Hypertension; well controlled Disposition: [id number] HOME UNDER HOME [facility] Time spent for discharge: 32 min Core Measure Documentation - Palliative Care Palliative Care/ Comfort Measures: Not Applicable - Core Measures Any of the following diagnoses?: none Exam - Constitutional Vitals: Temp Pulse Resp BP Pulse Ox 98.5 F 64 20 123/60 99 10/24/17 07:59 10/24/17 09:20 10/24/17 07:59 10/24/17 09:20 10/24/17 07:59 General appearance: Present: no acute distress, well-nourished - EENT Eyes: Present: PERRL, EOM intact - Neck Neck: Present: supple, normal ROM - Respiratory Respiratory effort: normal Respiratory: bilateral: diminished, negative: rales, rhonchi, wheezing - Cardiovascular Rhythm: regular Heart Sounds: Present: S1 & S2 - Extremities Extremities: no ischemia, No edema - Abdominal General gastrointestinal: Present: soft, non-tender, non-distended, normal bowel sounds - Integumentary Integumentary: Present: clear, warm - Musculoskeletal Musculoskeletal: strength equal bilaterally - Psychiatric Psychiatric: appropriate mood/affect, cooperative - Neurologic Neurologic: CNII-XII intact, moves all extremities Plan Activity: advance as tolerated, fall precautions Diet: regular Additional Instructions: Patient advised to see [Gabe Nix] in 1- 2 days. check INR in 2 days at [facility] on 10/26/17 , target INR 2- 3. If you notice bleeding hold Coumadin and Lovenox, contact [facility] Follow up with: PRIMARY CARE, [Referring] - 3-5 Days KARYN BENSON MD [Staff Physician] - 7 Days Forms: Warfarin Discharge Instruction Prescriptions: Enoxaparin [Lovenox] 90 mg SUB-Q Q12HR #10 syringe Morphine Sulfate [Morphine Sulfate IR] 15 mg PO Q8H PRN #15 tablet PRN Reason: Pain Warfarin [Coumadin] 5 mg PO DAILY@1700 #10 tablet
[2017-10-24 14:14] VITALS: BP 129/80
== END 2017-10-24 16:00 | disposition home health service (06) | DRG 442 ==
LOC: ED 13:41 → 2B-ACE 23:55 → 3A 10-18 06:58
PROVIDERS: ADMIT Internal Medicine; ATTEND Internal Medicine
DX: I81 Portal vein thrombosis (principal); C22.0 Liver cell carcinoma; D68.59 Other primary thrombophilia; E44.0 Moderate protein-calorie malnutrition; I48.91 Unspecified atrial fibrillation; I10 Essential (primary) hypertension; E11.9 Type 2 diabetes mellitus without complications; K21.9 Gastro-esophageal reflux disease without esophagitis; M19.90 Unspecified osteoarthritis, unspecified site; J44.9 Chronic obstructive pulmonary disease, unspecified; I25.10 Atherosclerotic heart disease of native coronary artery without angina pectoris; Z85.118 Personal history of other malignant neoplasm of bronchus and lung; Z85.05 Personal history of malignant neoplasm of liver; Z95.5 Presence of coronary angioplasty implant and graft; Z90.49 Acquired absence of other specified parts of digestive tract; Z87.891 Personal history of nicotine dependence; Z79.899 Other long term (current) drug therapy; Z92.21 Personal history of antineoplastic chemotherapy; Z82.49 Family history of ischemic heart disease and other diseases of the circulatory system; Z68.32 Body mass index [BMI] 32.0-32.9, adult; Z79.82 Long term (current) use of aspirin
CPT/HCPCS: 36415; 74177; 80048; 80053; 81001; 83036; 83690; 85007; 85025; 85610; 85730; 96374; 96375; 96376; 99285; J1650; J2270; J2405; Q9967